=== PATIENT | male | born 1970 | race Caucasian/White ===

== ENCOUNTER → 2016-03-23 | Outpatient (CLI) | payer OTHER | LOC: RAD 07:05 | PROVIDERS: ATTEND Nurse Practitioner | DX: M25.511 Pain in right shoulder (principal) ==

== ENCOUNTER 2016-04-15 08:39 | Day surgery (SDC) | payer OTHER ==
[~2016-04-15 08:39] MED LIST: DIPHENHYDRAMINE HCL 50 MG/ML VIAL ONE; EPINEPHRINE INJ 1 MG/10 ML DISP.SYRIN ONE; FENTANYL CITRATE INJ/PF 100 MCG/2 ML AMPUL ONE; FLUMAZENIL INJ 0.5 MG/5 ML VIAL IV ONE; GLUCAGON,HUMAN RECOMB 1 MG INJ ONE; NALOXONE HCL INJ/PF 0.4 MG/1 ML SDV ONE; ONDANSETRON HCL INJ/PF 4 MG/2 ML SDV ONE; PROMETHAZINE HCL INJ 25 MG/1 ML VIAL ONE
[2016-04-15] MEDS: MIDAZOLAM 2 MG/2 ML INJ ONE ×2 (09:45→09:50)
[2016-04-15 11:37] VITALS: BP 127/87
--- NOTE | 2016-04-15 11:45 | Operative Report ---
Operative Report DATE OF SURGERY: 04/15/16 Operative Report: The risks, benefits and alternatives of the procedure including risks of bleeding, perforation requiring surgery I expended the patient detail and informed consent is obtained. Patient is placed in a left, lateral decubital position. A rectal examination is done which did not reveal any masses, tears or fissures. Conscious sedation medications administered. Timeout is called. A Olympus videoscope this inserted into the patient's rectum. The scope was then gradually advanced all the way to the cecum. The cecum as identified by the usual anatomical landmarks including the ileocecal valve and the appendiceal office. Photodocumentation was obtained. Prep is good. The scope was then sequentially pulled back creative rest segments of the colon including the ascending colon, hepatic flexure, transverse colon, splenic flexure, descending colon and finally into the rectosigmoid colon. Retroflexion maneuvers performed PREOPERATIVE DIAGNOSIS: Family history of colon cancer. POSTOPERATIVE DIAGNOSIS: Normal screening colonoscopy OPERATION: Diagnostic colonoscopy SURGEON: MILAGROS RICHEY ANESTHESIA: Moderate Sedation - 4 mg of Versed, 75 g of fentanyl. Conscious sedation monitoring time 30 minutes. TISSUE REMOVED OR ALTERED: None. COMPLICATIONS: None. ESTIMATED BLOOD LOSS: none. PROCEDURE: Patient tolerated the procedure well. No immediate postprocedure complications are noted. Patient is discharged in good condition. Discharge date 04/15/2016. Discharge diet: Regular. Discharge activity: Regular. He does have a family history of colon cancer and therefore surveillance despite negative colonoscopies 5 years PRN follow-up. Patient is instructed to call the office or proceed to the emergency room if there are any further polyps or questions
== END 2016-04-15 10:55 | disposition home or self-care (01) ==
LOC: END 08:39
PROVIDERS: ATTEND Internal Medicine Gastroenterology
DX: Z80.0 Family history of malignant neoplasm of digestive organs (principal); K21.9 Gastro-esophageal reflux disease without esophagitis; E78.1 Pure hyperglyceridemia; G47.33 Obstructive sleep apnea (adult) (pediatric); Z79.1 Long term (current) use of non-steroidal anti-inflammatories (NSAID); Z79.899 Other long term (current) drug therapy
CPT/HCPCS: 45378; J2250; J3010; J0171; J1200; J1610; J2310; J2405; J2550; J3490

== ENCOUNTER → 2018-10-26 | Outpatient (CLI) | payer OTHER ==
--- NOTE | 2018-10-26 11:43 | RADIOLOGY REPORT (SQ) ---
EXAM DESCRIPTION: MRI RT UPPER JOINT WITHOUT COMPLETED DATE/TIME: 10/26/2018 9:59 am REASON FOR STUDY: M75.111 INCOMPLETE ROTATR-CUFF TEAR/RUPTR OF R SHOULDER, NOT TRAUMA M75.111 INCOM PLETE ROTATR-CUFF TEAR/RUPTR OF R SHOULDER, NOT COMPARISON: 03/23/2016, 10/19/2017 TECHNIQUE: Right shoulder images acquired and stored on PACS. Multiplanar imaging to include fat sen sitive sequences such as T1, water sensitive sequences such as FST2/STIR, cartilage sensitive sequenc es such as FSPD/gradient-echo sequences. LIMITATIONS: Motion. FINDINGS: BONE MARROW AND CORTEX: No worrisome bone lesions or marrow replacement. No occult fractur es. JOINT OR BURSAL EFFUSION: No significant bursal fluid collection. GLENO-HUMERAL ARTICULATION: Advanced arthropathy. ACROMION AND AC JOINT: Type 1 acromion. Mild AC joint arthropathy. ROTATOR CUFF AND INTERVAL: Diffuse tendinosis. No significant tear. LABRUM AND BICEPS LABRAL COMPLEX: Fraying of the superior labrum. Biceps intact. REMAINDER OF LABRUM AND IGHL : Intact. Mild thickening of the IGHL. PERIARTICULAR AND ADJACENT SOFT TISSUES: No masses or abnormal nodes. OTHER: No other significant finding. IMPRESSION: 1. Advanced glenohumeral joint arthropathy. 2. Diffuse tendinosis. No full-thickness tear. TECHNICAL DOCUMENTATION: JOB ID: [id number]- All Rights Reserved Reading location - IP/workstation name: [email or web address]
== END ==
LOC: RAD 08:57
PROVIDERS: ATTEND Physician Assistant
DX: M75.111 Incomplete rotator cuff tear or rupture of right shoulder, not specified as traumatic (principal)